=== PATIENT | female | born 1985 | race Caucasian/White ===

== ENCOUNTER 2018-06-21 08:57 | Emergency (ER) | payer OTHER ==
[~2018-06-21] VITALS: Ht 185.4 cm; Wt 149.3 kg
[2018-06-21] MEDS ORDERED: XANAX0.25 MG PO (11:15)
[2018-06-21] MEDS ORDERED: ADVIL200 MG PO (11:16)
[2018-06-21 11:30] LABS: ALBUMIN 3.9 g/dL (3.2-4.8); CHLORIDE 106 mEq/L (99-109); POTASSIUM 4.1 mEq/L (3.7-5.4); SODIUM 141 mEq/L (136-147)
[2018-06-21 11:32] LABS: GLUCOSE 125 mg/dL (70-99); TOTAL PROTEIN 6.8 g/dL (6.4-8.3)
[2018-06-21 11:34] LABS: TOTAL BILIRUBIN 0.6 mg/dL (0.0-1.0)
[2018-06-21 11:36] LABS: ALKALINE PHOSPHATASE 60 IU/L (3-129); CREATININE 0.8 mg/dL (0.6-1.3); GFR ESTIMATE (CALCULATED) > 59 mL/min/
[2018-06-21 11:37] LABS: UREA NITROGEN (BUN) 8 mg/dL (9-23)
[2018-06-21 11:38] LABS: AST (GOT) 28 IU/L (2-34)
[2018-06-21 11:39] LABS: ALT (GPT) 34 IU/L (3-49)
[2018-06-21 12:34] VITALS: BP 137/84
[2018-06-21 15:05] LABS: HEMATOCRIT 34.5 % (36.0-46.0); HEMOGLOBIN 11.2 G/DL (11.9-15.5); MCH 27.1 PG (29.0-34.0); MCHC 32.5 G/DL (30.0-36.0); MCV 83.5 FL (83-99); PLATELET COUNT 233 K/uL (156-360); RBC DIS.WIDTH-CV 13.1 % (11.8-14.6); RBC DIS.WIDTH-SD 39.3 % (39-53); RED BLOOD COUNT 4.13 M/uL (3.80-5.20); WHITE BLOOD COUNT 11.9 K/uL (4.1-10.2)
[2018-06-21 15:17] VITALS: BP 134/80
[2018-06-21] MEDS ORDERED: OXYCODONE-APAP1 EACH PO (20:07)
[2018-06-21] MEDS ORDERED: LITE COAT ASPI325 M1 PO (20:07)
[2018-06-21] MEDS ORDERED: SENNA PLUS TAB1 EACH PO (20:07)
[2018-06-21] MEDS ORDERED: CRUTCH1 EACH MC (20:08)
[2018-06-21 21:21] VITALS: BP 143/83
[2018-06-21 23:55] VITALS: BP 12/61
[2018-06-22 04:00] VITALS: BP 118/64
[2018-06-22 06:10] LABS: HEMATOCRIT 33.8 % (36.0-46.0); HEMOGLOBIN 10.9 G/DL (11.9-15.5); MCV 84.7 FL (83-99)
[2018-06-22 07:46] VITALS: BP 139/76
== END 2018-06-22 10:01 | disposition home or self-care (01) ==
LOC: EME 08:57 → 3EAST 11:13 → EDOF 11:13 → 3EAST 11:13 → ENRESERV 11:15 → 3EAST 12:15 → ENRESERV 20:25 → CANRESERV 20:25 → 3EAST 06-22 10:01
PROVIDERS: Emergency Medicine; Orthopaedic Surgery Sports Medicine
PROC: 0QSHXZZ Reposition Left Tibia, External Approach (ICD-10-PCS; principal; 2018-06-21)
PROC: 0QSH04Z Reposition Left Tibia with Internal Fixation Device, Open Approach (ICD-10-PCS; principal; 2018-06-21)
DX: S82.852A Displaced trimalleolar fracture of left lower leg, initial encounter for closed fracture (principal); S93.05XA Dislocation of left ankle joint, initial encounter; X50.1XXA Overexertion from prolonged static or awkward postures, initial encounter; W10.9XXA Fall (on) (from) unspecified stairs and steps, initial encounter; Z88.0 Allergy status to penicillin
CPT/HCPCS: 73600; 73610; 76000; 80053; 82306; 85014; 85018; 85027; 86850; 86900; 86901; 99281; 99285; C1713; G0378; J0131; J0330; J0690; J1100; J1170; J1885; J2250; J2405; J3010; J7030; S0020